=== PATIENT | female | born 1940 | race Caucasian/White ===

== ENCOUNTER 2022-10-29 15:11 | Inpatient (IN) | payer OTHER, MEDICAID ==
[~2022-10-29] VITALS: Ht 157.5 cm; Wt 46.7 kg
[2022-10-29 15:19] VITALS: BP 123/47
[2022-10-29 15:50] LABS: BASOPHILS % (AUTO) 0.9 % (0.0-2.0); EOSINOPHILS % (AUTO) 0.3 % (0.0-4.0); HEMATOCRIT 29.5 % (36-48); HEMOGLOBIN 9.3 g/dL (12.0-16.0); LYMPHOCYTES # (AUTO) 0.5 K/uL (2.5-16.5); MEAN CORPUSCULAR HEMOGLOBIN 21 pg (27-31); MEAN CORPUSCULAR HGB CONC 32 g/dL (33-37); MEAN CORPUSCULAR VOLUME 66.2 fL (80-94); MONOCYTES # (AUTO) 0.2 K/uL (0.8-1.0); MONOCYTES % (AUTO) 3.8 % (1.7-9.3); NEUTROPHILS # (AUTO) 3.6 K/uL (1.8-7.7); PLATELET COUNT (AUTO) 294 K/uL (140-450); RED BLOOD CELL COUNT(AUTO) 4.46 MIL/uL (4.20-5.40); RED CELL DISTRIBUTION WIDTH 16.6 % (11.6-13.7); WHITE BLOOD COUNT (AUTO) 4.4 K/uL (4.8-10.8)
[2022-10-29 16:13] LABS: ALBUMIN 1.9 g/dL (3.4-5.0); ASPARTATE AMINOTRANSFERASE 76 U/L (15-37); CHLORIDE 104 mmol/L (98-107); CREATININE 1.2 mg/dL (0.6-1.3); GLUCOSE 113 mg/dL (74-106); SODIUM SERUM 139 mmol/L (136-145); TOTAL BILIRUBIN 0.7 mg/dL (0.0-1.0); UREA NITROGEN, BLOOD 26 mg/dL (7-18)
[2022-10-29 16:50] LABS: SALICYLATE < 2.8 mg/dL (2.8-20.0)
[2022-10-29 16:51] LABS: ACETAMINOPHEN < 0.5 ug/ml (10-30)
[2022-10-29] MEDS ORDERED: POTASSIUM CHLORIDE 10 MEQ TABER PO ONE (16:55)
[2022-10-29] MEDS ORDERED: KCL 20 MEQ IN 100 mL PREMIX 200 ML IV ONE (16:55)
[2022-10-29] MEDS ORDERED: guaiFENesin DM 200/20 MG-10 ML 10 ML UDC PO PRN (19:45)
[2022-10-29] MEDS ORDERED: DOCUSATE SODIUM 100 MG GELCAP PO PRN (19:45)
[2022-10-29] MEDS: DEXT 5% /NACL 0.9% 1,000 ML IV SCH (19:45)
[2022-10-29] MEDS ORDERED: ACETAMINOPHEN 325 MG TAB PO PRN (19:45)
[2022-10-29] MEDS ORDERED: HYDROcodone/APAP 7.5/325 MG 1 TAB PO PRN (19:45)
[2022-10-29] MEDS ORDERED: ZOLPIDEM 5 MG TAB PO PRN (19:45)
[2022-10-29] MEDS ORDERED: ONDANSETRON 4 MG/2 ML VIAL IM/IVP PRN (19:45)
[2022-10-29 20:29] LABS: PROTHROMBIN TIME 11.6 secs (10.8-13.4)
[2022-10-29] MEDS ORDERED: [UNRECOGNIZED DRUG - CODE] PO (20:35)
[2022-10-29] MEDS ORDERED: [UNRECOGNIZED DRUG - CODE] PO (20:35)
[2022-10-29] MEDS ORDERED: ROSU10TA1 PO (20:35)
[2022-10-29] MEDS ORDERED: RANO500T7 PO (20:35)
[2022-10-29] MEDS ORDERED: BRIN10SU OP (20:35)
[2022-10-29] MEDS ORDERED: PANT40EC PO (20:35)
[2022-10-29] MEDS ORDERED: NIFE90TE3 PO (20:35)
[2022-10-29] MEDS ORDERED: METO100T14 PO (20:35)
[2022-10-29] MEDS ORDERED: CEL250 PO (20:35)
[2022-10-29] MEDS ORDERED: SYN.075 PO (20:35)
[2022-10-29] MEDS ORDERED: FURO-570 PO (20:35)
[2022-10-29] MEDS ORDERED: SIRO1TAB5 PO (20:35)
[2022-10-29 21:03] LABS: THYROID STIMULATING HORMONE 2.62 uIU/mL (0.34-3.74)
[2022-10-29 21:09] LABS: CHOL/HDL RATIO 3.9 (1-4.5); PHOSPHORUS 2.5 mg/dL (2.5-4.9)
[2022-10-29 21:10] LABS: FREE T4 (FREE THYROXINE) 1.28 ng/dL (0.76-1.46); MAGNESIUM 1.8 mg/dL (1.8-2.4)
[2022-10-29] MEDS ORDERED: cefTRIAXone 1,000 MG VIAL ONE (21:19)
[2022-10-30] MEDS: DEXT 5% /NACL 0.9% 1,000 ML IV SCH ×2 (02:17→10:45)
[2022-10-30 04:00] VITALS: BP 127/57
[2022-10-30 07:02] LABS: HEMATOCRIT 32.6 % (36-48); HEMOGLOBIN 10.1 g/dL (12.0-16.0); MEAN CORPUSCULAR HEMOGLOBIN 21 pg (27-31); MEAN CORPUSCULAR HGB CONC 31 g/dL (33-37); MEAN CORPUSCULAR VOLUME 67.4 fL (80-94); PLATELET COUNT (AUTO) 330 K/uL (140-450); RED BLOOD CELL COUNT(AUTO) 4.84 MIL/uL (4.20-5.40); RED CELL DISTRIBUTION WIDTH 16.7 % (11.6-13.7); WHITE BLOOD COUNT (AUTO) 3.6 K/uL (4.8-10.8)
[2022-10-30 07:22] LABS: ANION GAP 17.6 (8-16); CARBON DIOXIDE 24.5 mmol/L (21-32); CHLORIDE 99 mmol/L (98-107); CREATININE 1.4 mg/dL (0.6-1.3); GLUCOSE 149 mg/dL (74-106); POTASSIUM 3.1 mmol/L (3.5-5.1); SODIUM SERUM 138 mmol/L (136-145); UREA NITROGEN, BLOOD 25 mg/dL (7-18)
[2022-10-30 07:36] LABS: LYMPHOCYTES % (MANUAL) 22 % (20-46)
[2022-10-30 07:37] LABS: BASOPHILS % (MANUAL) 1 % (0-2); EOSINOPHILS % (MANUAL) 1 % (0-4); MONOCYTES % (MANUAL) 2 % (5-12)
[2022-10-30 08:00] VITALS: BP 134/54
[2022-10-30] MEDS ORDERED: METOPROLOL SUCCINATE 50 MG TABER PO SCH (09:00)
[2022-10-30] MEDS ORDERED: SIROLIMUS PO SCH (09:00)
[2022-10-30] MEDS ORDERED: NIFEdipine 90 MG TABER PO SCH (09:00)
[2022-10-30] MEDS ORDERED: PREDNISONE PO SCH (09:00)
[2022-10-30] MEDS: SIROLIMUS 1 MG PO SCH (10:42)
[2022-10-30] MEDS: PANTOPRAZOLE 40 MG TABEC PO SCH (10:49)
[2022-10-30] MEDS: FUROSEMIDE 40 MG TAB PO SCH (10:50)
[2022-10-30] MEDS: predniSONE 5 MG TAB PO SCH (10:51)
[2022-10-30] MEDS ORDERED: POTASSIUM CHLORIDE 10 MEQ TABER PO SCH (10:58)
[2022-10-30 12:00] VITALS: BP 102/50
[2022-10-30] MEDS: RANOLAZINE 500 MG TER PO SCH ×2 (12:05→20:13)
[2022-10-30] MEDS: LEVOTHYROXINE 0.075 MG TAB PO SCH (12:07)
[2022-10-30 13:41] LABS: APPEARANCE,URINE CLEAR (CLEAR); BILIRUBIN,URINE 1+ (NEGATIVE); BLOOD, URINE 2+ (NEGATIVE); COLOR,URINE YELLOW (YELLOW); LEUKOCYTE ESTERASE ,URINE TRACE (NEGATIVE); NITRITE, URINE NEGATIVE (NEGATIVE); PH,URINE 6.5 (5.0-9.0); UGLUCOSE NEGATIVE (NEGATIVE)
[2022-10-30 13:57] LABS: BARBITURATE, URINE NEGATIVE ng/ml (NEG <=200); BENZODIAZEPINE, URINE NEGATIVE ng/mL (NEG <=200); CANNABINOID, URINE NEGATIVE ng/mL (NEG <=50); COCAINE, URINE NEGATIVE ng/mL (NEG <=300); OPIATE, URINE NEGATIVE ng/mL (NEG <=2000); PHENCYCLIDINE SCREEN,URINE NEGATIVE ng/mL (NEG <=25)
[2022-10-30 14:19] LABS: RBC,URINE 0-5 /HPF (0-5)
[2022-10-30 16:00] VITALS: BP 105/51
[2022-10-30 20:00] VITALS: BP 88/47
[2022-10-30] MEDS: ATORVASTATIN 20 MG TAB PO SCH (20:13)
[2022-10-30] MEDS ORDERED: NON-FORMULARY ITEM (Rosuvastatin Calcium* (Crestor*) 10 MG) PO SCH (21:00)
[2022-10-31] VITALS: BP 105/60
[2022-10-31] MEDS: DEXT 5% /NACL 0.9% 1,000 ML IV SCH (02:18)
[2022-10-31 04:00] VITALS: BP 108/61
[2022-10-31 05:38] LABS: BASOPHILS % (AUTO) 0.8 % (0.0-2.0); EOSINOPHILS % (AUTO) 1.1 % (0.0-4.0); HEMATOCRIT 31.4 % (36-48); HEMOGLOBIN 9.8 g/dL (12.0-16.0); LYMPHOCYTES # (AUTO) 0.4 K/uL (2.5-16.5); LYMPHOCYTES % (AUTO) 11.1 % (20.5-51.1); MEAN CORPUSCULAR HEMOGLOBIN 21 pg (27-31); MEAN CORPUSCULAR HGB CONC 31 g/dL (33-37); MEAN CORPUSCULAR VOLUME 66.6 fL (80-94); MONOCYTES # (AUTO) 0.1 K/uL (0.8-1.0); MONOCYTES % (AUTO) 2.3 % (1.7-9.3); NEUTROPHILS # (AUTO) 2.7 K/uL (1.8-7.7); NEUTROPHILS % (AUTO) 84.7 % (42.2-75.2); PLATELET COUNT (AUTO) 240 K/uL (140-450); RED BLOOD CELL COUNT(AUTO) 4.71 MIL/uL (4.20-5.40); RED CELL DISTRIBUTION WIDTH 17.6 % (11.6-13.7); WHITE BLOOD COUNT (AUTO) 3.2 K/uL (4.8-10.8)
[2022-10-31 06:17] LABS: ANION GAP 14.4 (8-16); CARBON DIOXIDE 25.8 mmol/L (21-32); CHLORIDE 103 mmol/L (98-107); CREATININE 1.2 mg/dL (0.6-1.3); GLUCOSE 130 mg/dL (74-106); POTASSIUM 3.2 mmol/L (3.5-5.1); SODIUM SERUM 140 mmol/L (136-145); UREA NITROGEN, BLOOD 26 mg/dL (7-18)
[2022-10-31] MEDS: LEVOTHYROXINE 0.075 MG TAB PO SCH (07:23)
[2022-10-31 08:00] VITALS: BP 113/57
[2022-10-31 08:07] LABS: T4 (THYROXINE) 6.8 ug/dL (4.5-12.0)
[2022-10-31] MEDS: MYCOPHENOLATE 250 MG CAP PO SCH ×2 (08:55→22:55)
[2022-10-31] MEDS: PANTOPRAZOLE 40 MG TABEC PO SCH (08:57)
[2022-10-31] MEDS: FUROSEMIDE 40 MG TAB PO SCH (08:58)
[2022-10-31] MEDS: predniSONE 5 MG TAB PO SCH (08:59)
[2022-10-31] MEDS: RANOLAZINE 500 MG TER PO SCH (09:00)
[2022-10-31] MEDS: SIROLIMUS 1 MG PO SCH (09:00)
[2022-10-31] MEDS: POTASSIUM CHLORIDE 40 MEQ, LIDOCAINE MPF 1% 25 MG in NACL 0.9% 250 ML IV PRN (09:52)
[2022-10-31 12:00] VITALS: BP 127/54
[2022-10-31 16:00] VITALS: BP 135/64
[2022-10-31 20:00] VITALS: BP 140/68
[2022-10-31] MEDS: ATORVASTATIN 20 MG TAB PO SCH (22:54)
[2022-11-01] VITALS: BP 132/75
[2022-11-01] MEDS: MYCOPHENOLATE 250 MG CAP PO SCH ×3 (00:33→21:42)
[2022-11-01] MEDS: RANOLAZINE 500 MG TER PO SCH ×3 (00:53→21:44)
[2022-11-01 04:00] VITALS: BP 130/66
[2022-11-01 05:12] LABS: BASOPHILS % (AUTO) 0.6 % (0.0-2.0); EOSINOPHILS % (AUTO) 1.3 % (0.0-4.0); HEMATOCRIT 28.8 % (36-48); LYMPHOCYTES # (AUTO) 0.4 K/uL (2.5-16.5); LYMPHOCYTES % (AUTO) 10.3 % (20.5-51.1); MEAN CORPUSCULAR HEMOGLOBIN 21 pg (27-31); MEAN CORPUSCULAR HGB CONC 31 g/dL (33-37); MEAN CORPUSCULAR VOLUME 66.4 fL (80-94); MONOCYTES # (AUTO) 0.1 K/uL (0.8-1.0); MONOCYTES % (AUTO) 3.2 % (1.7-9.3); NEUTROPHILS # (AUTO) 3.2 K/uL (1.8-7.7); NEUTROPHILS % (AUTO) 84.6 % (42.2-75.2); PLATELET COUNT (AUTO) 205 K/uL (140-450); RED BLOOD CELL COUNT(AUTO) 4.34 MIL/uL (4.20-5.40); RED CELL DISTRIBUTION WIDTH 17.2 % (11.6-13.7); WHITE BLOOD COUNT (AUTO) 3.8 K/uL (4.8-10.8)
[2022-11-01 05:38] LABS: ANION GAP 11.4 (8-16); CHLORIDE 104 mmol/L (98-107); CREATININE 1.1 mg/dL (0.6-1.3); GLUCOSE 105 mg/dL (74-106); POTASSIUM 3.4 mmol/L (3.5-5.1); SODIUM SERUM 139 mmol/L (136-145); UREA NITROGEN, BLOOD 23 mg/dL (7-18)
[2022-11-01] MEDS: LEVOTHYROXINE 0.075 MG TAB PO SCH (06:15)
[2022-11-01] MEDS: FUROSEMIDE 40 MG/4 ML VIAL IVP SCH ×3 (06:19→21:40)
[2022-11-01 08:00] VITALS: BP 128/72
[2022-11-01] MEDS: PANTOPRAZOLE 40 MG TABEC PO SCH (09:07)
[2022-11-01] MEDS: SIROLIMUS 1 MG PO SCH (09:08)
[2022-11-01] MEDS: predniSONE 5 MG TAB PO SCH (09:22)
[2022-11-01 12:00] VITALS: BP 167/70
[2022-11-01 16:00] VITALS: BP 139/73
[2022-11-01 20:00] VITALS: BP 132/76
[2022-11-01] MEDS: NAPROXEN 500 MG TAB PO SCH (21:43)
[2022-11-01] MEDS: ATORVASTATIN 20 MG TAB PO SCH (21:43)
[2022-11-01] MEDS: COLCHICINE 0.6 MG TAB PO SCH (21:44)
[2022-11-02] VITALS: BP 136/76
[2022-11-02 04:00] VITALS: BP 142/76
[2022-11-02] MEDS: FUROSEMIDE 40 MG/4 ML VIAL IVP SCH ×3 (05:00→13:14)
[2022-11-02 05:18] LABS: BASOPHILS % (AUTO) 0.5 % (0.0-2.0); EOSINOPHILS # (AUTO) 0.1 K/uL (0-0.4); EOSINOPHILS % (AUTO) 2.6 % (0.0-4.0); HEMATOCRIT 28.8 % (36-48); HEMOGLOBIN 9.1 g/dL (12.0-16.0); LYMPHOCYTES # (AUTO) 0.4 K/uL (2.5-16.5); LYMPHOCYTES % (AUTO) 11.3 % (20.5-51.1); MEAN CORPUSCULAR HEMOGLOBIN 21 pg (27-31); MEAN CORPUSCULAR HGB CONC 32 g/dL (33-37); MEAN CORPUSCULAR VOLUME 66.5 fL (80-94); MONOCYTES # (AUTO) 0.1 K/uL (0.8-1.0); MONOCYTES % (AUTO) 3.6 % (1.7-9.3); NEUTROPHILS # (AUTO) 3.2 K/uL (1.8-7.7); PLATELET COUNT (AUTO) 186 K/uL (140-450); RED BLOOD CELL COUNT(AUTO) 4.34 MIL/uL (4.20-5.40); RED CELL DISTRIBUTION WIDTH 17.3 % (11.6-13.7)
[2022-11-02 05:43] LABS: ANION GAP 10.8 (8-16); CARBON DIOXIDE 28.5 mmol/L (21-32); CHLORIDE 103 mmol/L (98-107); CREATININE 1.3 mg/dL (0.6-1.3); GLUCOSE 97 mg/dL (74-106); POTASSIUM 3.3 mmol/L (3.5-5.1); SODIUM SERUM 139 mmol/L (136-145); UREA NITROGEN, BLOOD 28 mg/dL (7-18)
[2022-11-02] MEDS: LEVOTHYROXINE 0.075 MG TAB PO SCH ×2 (06:30→11:29)
[2022-11-02 08:00] VITALS: BP_SYST 113; BP_SYST 157; BP_DIAS 62; BP_DIAS 73
[2022-11-02] MEDS: NAPROXEN 500 MG TAB PO SCH (08:21)
[2022-11-02] MEDS: MYCOPHENOLATE 250 MG CAP PO SCH (08:22)
[2022-11-02] MEDS: RANOLAZINE 500 MG TER PO SCH (08:22)
[2022-11-02] MEDS: PANTOPRAZOLE 40 MG TABEC PO SCH (08:25)
[2022-11-02] MEDS: COLCHICINE 0.6 MG TAB PO SCH (08:25)
[2022-11-02] MEDS: predniSONE 5 MG TAB PO SCH (08:36)
[2022-11-02] MEDS: SIROLIMUS 1 MG PO SCH (09:00)
[2022-11-02] MEDS: POTASSIUM CHLORIDE 40 MEQ, LIDOCAINE MPF 1% 25 MG in NACL 0.9% 250 ML IV PRN (10:32)
[2022-11-02 12:00] VITALS: BP 117/62
[2022-11-02] MEDS ORDERED: ZAR2.5 PO (13:18)
[2022-11-02] MEDS ORDERED: COLC-30 PO (13:18)
[2022-11-02] MEDS ORDERED: FURO-570 PO (13:18)
[2022-11-02] MEDS ORDERED: POTA10TA70 PO (13:29)
[2022-11-02 14:47] VITALS: BP 117/62
[2022-11-02 16:00] VITALS: BP 117/81
== END 2022-11-02 18:45 | DRG 640 ==
LOC: MED 15:11 → MTU 17:56
PROVIDERS: ADMIT Family Medicine; ATTEND Family Medicine
DX: E87.6 Hypokalemia (principal); E43 Unspecified severe protein-calorie malnutrition; G93.41 Metabolic encephalopathy; I50.43 Acute on chronic combined systolic (congestive) and diastolic (congestive) heart failure; J90 Pleural effusion, not elsewhere classified; I31.39 Other pericardial effusion (noninflammatory); Z94.0 Kidney transplant status; Z68.1 Body mass index [BMI] 19.9 or less, adult; R65.10 Systemic inflammatory response syndrome (SIRS) of non-infectious origin without acute organ dysfunction; Z20.822 Contact with and (suspected) exposure to COVID-19; M81.0 Age-related osteoporosis without current pathological fracture; E78.5 Hyperlipidemia, unspecified; E03.9 Hypothyroidism, unspecified; D72.825 Bandemia; Z90.710 Acquired absence of both cervix and uterus; E11.9 Type 2 diabetes mellitus without complications; I11.0 Hypertensive heart disease with heart failure
CPT/HCPCS: 36415; 70450; 71045; 73020; 73030; 73060; 73080; 73090; 73100; 73110; 76604; 80048; 80053; 80305; 81001; 82150; 82550; 83036; 83690; 83735; 83880; 84100; 84436; 84439; 84443; 84479; 84484; 85025; 85610; 85730; 87040; 87081; 87086; 93005; 93308; 93971; 96374; 97112; 97116; 97163-GP; 97530; 99285; G0480; G0482; J0696; J1940; J2001; J3480; J7030; J7060; J7512; J7517; Q0092